=== PATIENT | female | born 1950 | race Caucasian/White ===

== ENCOUNTER 2016-10-05 13:19 | Emergency (ER) | payer OTHER | END 2016-10-05 13:40 | disposition home or self-care (01) | LOC: CFTX 13:19 | DX: H60.92 Unspecified otitis externa, left ear (principal); H60.332 Swimmer's ear, left ear; J45.909 Unspecified asthma, uncomplicated; M19.90 Unspecified osteoarthritis, unspecified site; Z88.2 Allergy status to sulfonamides; Z88.5 Allergy status to narcotic agent; Z88.0 Allergy status to penicillin; Z88.8 Allergy status to other drugs, medicaments and biological substances | CPT/HCPCS: 99282 ==